=== PATIENT | female | born 1950 | race Caucasian/White ===

== ENCOUNTER 2018-11-20 01:31 | Inpatient (IN) | payer MEDICARE, MEDICAID ==
[2018-11-20 02:20] LABS: Bilirubin Negative (Negative); Blood, Urine Negative (Negative); Clarity CLEAR (Clear); Glucose, Urine (Dipstick) Negative (Negative); Leukocyte Trace (Negative); Nitrite Negative (Negative); Protein, Urine (Dipstick) Negative (Neg-Trace); Urobilinogen 0.2 mg/dL (0.2-1.0); pH, Urine 5.5 (5.0-9.0)
[2018-11-20 02:24] LABS: Specific Gravity, Urine 1.003 (1.002-1.036)
[2018-11-20 02:27] LABS: Bacteria/HPF Rare-Few HPF (None Seen); Hyaline Casts/LPF NONE SEEN LPF (0-3 Hyaline); RBC/HPF None Seen HPF (0-3); Squamous Epithelial 0-3 HPF (0-3); WBC/HPF 0-3 HPF (0-3)
[2018-11-20 03:19] LABS: #Basophils 0.1 thou/uL (0.0-0.2); #Eosinphils 0.3 thou/uL (0.0-0.7); #Lymphocytes 2.2 thou/uL (1.20-3.40); #Monocytes 0.3 thou/uL (0.11-0.59); #Neutrophils 3.4 thou/uL (1.40-6.50); %Basophils 1.3 % (0.0-1.0); %Lymphocytes 35.7 % (21.0-51.0); Hemoglobin 7.8 g/dL (12.0-16.0); Mean Corpuscular HGB CONC 35.2 g/dL (32.0-36.0); Mean Corpuscular Hemoglobin 30.1 pg (27.0-31.0); Mean Corpuscular Volume 85.7 fL (78.0-98.0); Mean Platelet Volume 7.5 fL (7.4-10.4); Platelet Count 207 thou/uL (130-400); RBC Distribution Width 15.8 % (11.5-14.5); Red Blood Cell (RBC) Count 2.58 mill/uL (4.20-5.40); White Blood Cell (WBC) Count 6.3 thou/uL (4.8-10.8)
[2018-11-20 03:29] LABS: ALT (SGPT) Less than 7 U/L (8-55); AST (SGOT) 6 U/L (5-34); Albumin 3.3 g/dL (3.4-4.8); Alkaline Phosphatase 76 U/L (40-150); Anion Gap 12 mmol/L (10-20); BUN (Urea Nitrogen) 10 mg/dL (9.8-20.1); Bilirubin, Total 2.7 mg/dL (0.2-1.2); Calc. Creatinine Clearance 0 mL/min (70-130); Calcium 8.6 mg/dL (7.8-10.44); Carbon Dioxide 24 mmol/L (23-31); Chloride 92 mmol/L (98-107); Estimated GFR-MDRD 64; Globulin 2.6 g/dL (2.4-3.5); Glucose 84 mg/dL (80-115); Potassium 3.7 mmol/L (3.5-5.1); Protein, Total 5.9 g/dL (6.0-8.3); Sodium 124 mmol/L (136-145)
[2018-11-20 04:44] LABS: INR-International Normal Ratio 1.1; PTT 38.1 SEC (22.9-36.1); Prothrombin Time 14.1 SEC (12.0-14.7)
[2018-11-20] MEDS ORDERED: Senokot S 8.6-50 MG TAB PO PRN (07:40)
[2018-11-20] MEDS ORDERED: HYDROcodone/Acetaminophen 5/325 mg Tablet PO PRN (07:40)
[2018-11-20] MEDS ORDERED: Diabetic Tussin 200 MG/10 ML UDCUP PO PRN (07:40)
[2018-11-20] MEDS ORDERED: Cepastat Lozenges 1 LOZ PO PRN (07:40)
[2018-11-20] MEDS ORDERED: Loperamide HCl 2 MG CAP PO PRN (07:40)
[2018-11-20] MEDS ORDERED: hydrALAZINE 20 MG/ML VIAL SLOW IVP PRN (07:40)
[2018-11-20] MEDS ORDERED: Bisacodyl 10 MG SUPP PR PRN (07:40)
[2018-11-20] MEDS ORDERED: Eucerin (Mineral Oil/Petrolatum,White) 30 gm Jar TOP PRN (07:40)
[2018-11-20] MEDS ORDERED: Ondansetron ODT 4 MG TAB PO PRN (07:40)
[2018-11-20] MEDS ORDERED: Artificial Tears 18 DROP/0.9 ML EA EYE PRN (07:40)
[2018-11-20] MEDS ORDERED: Zolpidem Tartrate 5 MG TAB PO PRN (07:40)
[2018-11-20] MEDS ORDERED: Bisacodyl 5 MG TAB PO PRN (07:40)
[2018-11-20] MEDS ORDERED: Loratadine 10 MG TAB PO PRN (07:40)
[2018-11-20] MEDS ORDERED: Sodium Chloride 0.65% Nasal 44 ML BOT EA NARE PRN (07:40)
[2018-11-20] MEDS ORDERED: Acetaminophen 325 MG TAB PO PRN (07:40)
[2018-11-20] MEDS ORDERED: Ondansetron PF 4 MG/2 ML Vial IVP PRN (07:40)
[2018-11-20] MEDS ORDERED: Calcium Carbonate 500 MG ChewTAB PO PRN (07:40)
[2018-11-20] MEDS ORDERED: Enoxaparin Sodium 40 MG/0.4 ML SYRINGE SC SCH (07:45)
--- NOTE | 2018-11-20 08:06 | RAD ---
TWO VIEWS CHEST: Comparison: None. History: Shortness of breath. FINDINGS: Two views of the chest show normal sized cardiomediastinal silhouette. There is no evidence of consol idation, mass, or pleural effusion. The bones are unremarkable. IMPRESSION: No evidence of acute cardiopulmonary disease. POS: CET
--- NOTE | 2018-11-20 08:27 | CT ---
PRELIMINARY REPORT/[facility]/EMERGENTY AFTER-HOURS PROCEDURE CT Head Without Contrast EXAM DATE/TIME: 11/20/2018 5:08 AM CLINICAL HISTORY: 67 years old, female; Signs and symptoms; Dizziness; Patient HX: Lakia presents to ed for feeling "unwe ll. " PT reports feeling dizzy and weak. PT also reports tightness in her head and neck pain for 4 ye ars, denies falling. PT reports she has had low sodium before after reaction to cipro. PT reports smo pham. PT denies chest pain, reports some SOB and difficulty eating. Hx- no HX of chf, heart failure. TECHNIQUE: Axial computed tomography images of the head/brain without contrast. COMPARISON: No relevant prior studies available. FINDINGS: Brain: Normal. No hemorrhage. No significant white matter disease. No edema. Ventricles: Normal. No ventriculomegaly. Bones/joints: Normal. No acute fracture. Sinuses: Normal as visualized. No acute sinusitis. Mastoid air cells: Normal as visualized. No mastoid effusion. Soft tissues: Normal. IMPRESSION: No acute intracranial abnormality. Thank you for allowing us to participate in the care of your patient. Dictated and Authenticated by: Vincenzo Infante MD 11/20/2018 6:47 AM Central Time ([place] & [place]) FINAL REPORT EMERGENCY AFTER HOURS STUDY: CT BRAIN NONCONTRAST: HISTORY: 67-year-old female with dizziness and headache. FINDINGS: There is no midline shift or any other mass effect. There is no evidence of acute intracranial hemor rhage, large cortical infarct, obstructive hydrocephalus, or extraaxial fluid collection. The calvar ium is intact. This report agrees with the preliminary report by [facility]. IMPRESSION: No acute intracranial findings. harjinder POS: ANKIT
--- NOTE | 2018-11-20 08:35 | CT ---
PRELIMINARY REPORT/[facility]/EMERGENTY AFTER-HOURS PROCEDURE CT Chest With Contrast EXAM DATE/TIME: 11/20/2018 5:13 AM CLINICAL HISTORY: 67 years old, female; Signs and symptoms; Shortness of breath; Patient HX: Lakia presents to ed for fee ling "unwell. " PT reports feeling dizzy and weak. PT also reports tightness in her head and neck bernie n for 4 years, denies falling. PT reports she has had low sodium before after reaction to cipro. PT r eports smoking. PT denies chest pain, reports some SOB and difficulty eating. Hx- no HX of chf, heart failure. TECHNIQUE: Axial computed tomography images of the chest with intravenous contrast. COMPARISON: No relevant prior studies available. FINDINGS: Lungs: Mild emphysema. Multifocal peripheral lobular ground glass opacities in the right lung are non specific, most likely scarring, subsegmental atelectasis, or organizing pneumonia. Multifocal infecti ous pneumonia possible but less likely. Pleural space: Normal. No pneumothorax. No pleural effusion. Heart: Normal. No cardiomegaly. No pericardial effusion. Mediastinum: Esophagus is unremarkable. Pulmonary arteries: Study not protocoled to evaluate for pulmonary embolus. No evidence of a large ce ntral PE. Aorta: Atherosclerotic aorta. No aneurysm or acute aortic syndrome. Lymph nodes: Unremarkable. No enlarged lymph nodes. Bones/joints: Unremarkable. No acute fracture. Soft tissues: Unremarkable. Adrenals: Isodense non-mass like thickening of the adrenal glands bilaterally, likely benign. IMPRESSION: Multifocal peripheral lobular ground glass opacities in the right lung are nonspecific, most likely s carring, subsegmental atelectasis, or organizing pneumonia. Multifocal infectious pneumonia possible but less likely. Thank you for allowing us to participate in the care of your patient. Dictated and Authenticated by: Vincenzo Infante MD 11/20/2018 6:50 AM Central Time ([place] & [place]) FINAL REPORT EMERGENCY AFTER HOURS STUDY: CT THORAX WITH CONTRAST: DATE: 11-20-18 TIME: 5:16 A.M. HISTORY: 67-year-old female with dyspnea. COMPARISON: None. TECHNIQUE: IV iodinated contrast media: 100 ml Isovue 370 FINDINGS: Several wedge-shaped small ground glass pulmonary opacities in the anterior segment of the right uppe r lobe abutting the anterior pleural surface. A similar such lesion in the right middle lobe, broadly abutting the major fissure. The rest of the lungs are clear. No pleural effusion or pneumothorax. Tr achea and major bronchi are patent and clear. No cardiomegaly or pericardial effusion. No mediastinal or hilar lymphadenopathy is seen. Mild centrilobular emphysematous changes at bilateral lung apices. Bilateral adrenal hyperplasia. The findings are not typical for subsegmental atelectasis or pulmonary scarring, which is a minor dis agreement with the preliminary report by [facility]. No major disagreement. IMPRESSION: Several focal ground glass opacities in the anterior segment of the right upper lobe and right middle lobe. The differential diagnosis includes organizing pneumonia and multifocal infectious pneumonia, versus pulmonary infarctions. The appearance is not typical for scarring or subsegmental atelectasis. Code QA JN R POS: ANKIT
[2018-11-20] MEDS ORDERED: guaiFENesin ER 600 MG TAB PO SCH ×2 (09:00→10:30)
[2018-11-20] MEDS ORDERED: Saccharomyces boulardii 250 MG CAP PO SCH ×2 (09:00→10:30)
[2018-11-20] MEDS ORDERED: Cefepime 1 GM in Sodium Chloride 0.9% 100 ML IVPB SCH ×2 (09:00→21:00)
[2018-11-20] MEDS ORDERED: cefTRIAXone\\ROCEPHIN 1 GM VIAL ONE (09:46)
[2018-11-20 09:55] LABS: Thyroid Stimulating Hormone 3.3477 uIU/mL (0.35-4.94)
[2018-11-20] MEDS ORDERED: Doxycycline 100 MG CAP PO SCH (10:30)
[2018-11-20] MEDS ORDERED: Azithromycin 500 MG VIAL ONE (10:36)
--- NOTE | 2018-11-20 11:57 | HP ---
PRIMARY CARE PHYSICIAN: [facility]. REASON FOR ADMISSION: Symptomatic hyponatremia, pneumonia. HISTORY OF PRESENT ILLNESS: A 67-year-old female, who has underlying history of hypertension, tobacco abuse disorder, who presented to emergency room with complaint of generalized weakness, cough productive to scant amount of whitish yellow sputum. She denies any pleuritic chest pain. She was feeling weak, fatigue diet, dizzy. She was not feeling good. She was feeling as if exhausted. She denied any orthopnea, PND, or leg swelling. She denies any fever or chills. She was having lately more shortness of breath and more cough. She continued to smoke about half pack per day. She denies any weight loss. She denies any hemoptysis. She denies any UTI symptoms. She denies any constipation, diarrhea, melena, or hematochezia. With this symptoms, she presented in the emergency room and she had a chest x- ray, which was consistent with emphysema. CTA of chest showed findings suspicious for nonspecific infiltration. Her routine blood test also showed hyponatremia and that is why we decided to give this patient in the hospital for further evaluation and treatment. PAST MEDICAL HISTORY: Tobacco abuse disorder and hypertension. PAST SURGICAL HISTORY: Tubal ligation and cataract surgery. PAST PSYCHIATRIC HISTORY: Reviewed and negative. SOCIAL HISTORY: The patient is smoking about half pack per day. She drinks alcohol occasionally. She denies any other illicit drug abuse. FAMILY HISTORY: No family history of coronary artery disease, stroke, or cancer. ALLERGIES: CIPRO, CODEINE, CYMBALTA, IODINE, LEVOTHYROXINE, AND POTASSIUM CHLORIDE. CURRENT HOME MEDICATIONS: 1. Amlodipine 5 mg twice daily. 2. Coreg 6.25 mg twice daily. EMERGENCY ROOM COURSE: The patient is given Rocephin and azithromycin. REVIEW OF SYSTEMS: CONSTITUTIONAL: Negative for weight loss or gain, ability to conduct usual activities. SKIN: Negative for rash, itching. EYES: Negative for double vision, pain. ENT/MOUTH: Negative for nose bleeding, neck stiffness, pain, tenderness. CARDIOVASCULAR: Negative for palpitations, dyspnea on exertion, orthopnea. RESPIRATORY: Negative for shortness of breath, wheezing, cough, hemoptysis, fever or night sweats. GASTROINTESTINAL: Negative for poor appetite, abdominal pain, heartburn, nausea , vomiting, constipation, or diarrhea. GENITOURINARY: Negative for urgency, frequency, dysuria, nocturia. MUSCULOSKELETAL: Negative for pain, swelling. NEUROLOGIC/PSYCHIATRIC: Negative for anxiety, depression. ALLERGY/IMMUNOLOGIC: Negative for skin rash, bleeding tendency. Please see my HPI for pertinent positive and negative. All other review of systems reviewed and negative except as mentioned in HPI. PHYSICAL EXAMINATION: VITAL SIGNS: On arrival, blood pressure 110/56, pulse 67, respiratory rate 16, temperature 97.5, and saturation 100% on room air. Weight 58.9 kg. GENERAL: The patient is currently alert and awake, in no obvious acute distress. HEENT: Head; normocephalic and atraumatic. Eyes; pupils are round and reactive to light. Extraocular muscle intact. ENT, oropharynx within normal limits. Moist mucous membranes. No oral lesion. No pharyngeal erythema. No exudate. NECK: Supple. No JVD. No thyromegaly. No carotid bruit. LUNGS: Coarse breath sounds noted. No wheezing. No rales. CARDIAC: S1, S2 regular. No murmur. No gallop. No rub. ABDOMEN: Soft. Bowel sounds present. Nontender. Nondistended. No organomegaly. No mass. No suprapubic tenderness. BACK: Unremarkable. No CVA tenderness. EXTREMITIES: Upper extremities; passive movement of all joints are normal. Lower extremity, no edema. Good distal pulsation. SKIN: No skin rash. HEMATOLOGICAL SYSTEM: No lymphadenopathy. NEUROLOGIC: Nonfocal examination. ASSESSMENT AND PLAN: 1. Atypical multifocal pneumonia. Differential diagnosis is nonspecific interstitial pneumonia versus organizing pneumonia. The patient has underlying smoking history, so possibility of respiratory bronchiolitis with organizing pneumonia is likely. We will check respiratory viral pathology to rule out any viral etiology. We will start empiric antibiotic therapy with Rocephin and doxycycline. We will continue with DuoNeb q.6 hourly p.r.n. and Mucinex 600 mg twice daily. 2. Florastor 250 mg p.o. daily. 3. Hyponatremia. We will start normal saline at 70 mL/h and we will repeat BMP tomorrow. We will check urine osmolality, plasma osmolality, random cortisol, TSH, and urine electrolytes. 4. Anemia of chronic disease. We will start ferrous sulfate 325 mg p.o. daily, multivitamin 1 tablet p.o. daily. The patient will need age-appropriate colonoscopy after discharge. 5. Tobacco abuse disorder. Smoking cessation counseling given. Healthy lifestyle measure discussed with the patient. 6. Emphysema. The patient will need DuoNeb therapy while in hospital as needed basis. Upon discharge, we will prescribe Ventolin inhaler. Smoking cessation counseling given. 7. Protein-calorie malnutrition, mild. The patient will need nutritional supplement with Ensure t.i.d. 8. Deep venous thrombosis prophylaxis, Lovenox 40 mg subcu daily. Gastrointestinal prophylaxis, Pepcid 20 mg p.o. b.i.d. CODE STATUS: The patient is full code. The patient's daughter is surrogate decision maker. DISPOSITION PLAN: Based on clinical course, we are expecting the patient to stay in hospital more than 2 midnights. Plan of care discussed with the patient in detail. Job ID: [id number] MTDD
[2018-11-20] MEDS ORDERED: Iopamidol 370 76% 100 ML VIAL ONE (12:19)
[2018-11-20] MEDS ORDERED: Famotidine 20 MG TAB ONE (12:45)
[2018-11-20] MEDS ORDERED: Enoxaparin Sodium 40 MG/0.4 ML SYRINGE ONE (12:45)
[2018-11-20] MEDS: Famotidine 20 MG TAB PO SCH ×2 (13:25→20:58)
[2018-11-20] MEDS: Sodium Chloride 0.9% 1,000 ML IV SCH (13:28)
[2018-11-20] MEDS: Doxycycline 100 MG CAP PO SCH (20:58)
[2018-11-20] MEDS: guaiFENesin ER 600 MG TAB PO SCH (20:58)
[2018-11-20 21:51] VITALS: BMI 25.4
[2018-11-21] MEDS: Sodium Chloride 0.9% 1,000 ML IV SCH (01:35)
[2018-11-21 04:44] LABS: Osmolality, Urine 138 mOsm/kg (300-900)
[2018-11-21 04:57] LABS: Sodium, Urine Less than 20 mmol/L (Not Available)
[2018-11-21] MEDS ORDERED: Prevnar 13-Val Conj/PF 0.5 ML SYRINGE IM ONE (09:00)
[2018-11-21] MEDS: cefTRIAXone\\ROCEPHIN 1 GM in Sodium Chloride 0.9% 100 ML IVPB SCH (09:44)
[2018-11-21] MEDS: Doxycycline 100 MG CAP PO SCH ×2 (09:45→20:49)
[2018-11-21] MEDS: Ferrous Sulfate 325 MG TAB PO SCH (09:46)
[2018-11-21] MEDS: Saccharomyces boulardii 250 MG CAP PO SCH (09:46)
[2018-11-21] MEDS: Multivitamin W/ Minerals 1 TAB PO SCH (09:46)
[2018-11-21] MEDS: guaiFENesin ER 600 MG TAB PO SCH ×2 (09:46→20:49)
[2018-11-21] MEDS: Famotidine 20 MG TAB PO SCH ×2 (09:46→20:49)
[2018-11-21 10:15] LABS: Hemoglobin 6.4 g/dL (12.0-16.0); Mean Corpuscular HGB CONC 33.9 g/dL (32.0-36.0); Mean Corpuscular Hemoglobin 29.7 pg (27.0-31.0); Mean Corpuscular Volume 87.7 fL (78.0-98.0); Mean Platelet Volume 7.7 fL (7.4-10.4); Platelet Count 182 thou/uL (130-400); RBC Distribution Width 16.4 % (11.5-14.5); Red Blood Cell (RBC) Count 2.16 mill/uL (4.20-5.40); White Blood Cell (WBC) Count 4.4 thou/uL (4.8-10.8)
[2018-11-21 10:29] LABS: Iron 187 ug/dL (50-170); Iron Binding Capacity, Total 189 mcg/dL (265-497)
[2018-11-21 10:30] LABS: ALT (SGPT) Less than 7 U/L (8-55); AST (SGOT) 7 U/L (5-34); Albumin 2.9 g/dL (3.4-4.8); Alkaline Phosphatase 66 U/L (40-150); Anion Gap 9 mmol/L (10-20); BUN (Urea Nitrogen) 8 mg/dL (9.8-20.1); Bilirubin, Total 2.4 mg/dL (0.2-1.2); Calc. Creatinine Clearance 59 mL/min (70-130); Calcium 8.1 mg/dL (7.8-10.44); Carbon Dioxide 25 mmol/L (23-31); Chloride 98 mmol/L (98-107); Estimated GFR-MDRD 64; Globulin 2.2 g/dL (2.4-3.5); Glucose 109 mg/dL (80-115); Potassium 3.5 mmol/L (3.5-5.1); Protein, Total 5.1 g/dL (6.0-8.3); Sodium 128 mmol/L (136-145)
[2018-11-21 11:02] LABS: Band 2 % (5-11); Bite Cells SLIGHT = 2-5 cells (100X) (0-1/hpf); Eosinophils 5 % (0-10); Lymphocytes 46 % (21-51); MDiff Complete? YES; Monocytes 3 % (0-10); Neutrophil 43 % (42-75); Platelet Morphology Comment Appears Adequate; Polychromasia SLIGHT = 2-3 cells (100X) (0-2/hpf); Reactive Lymphocytes 1 % (0-10)
--- NOTE | 2018-11-21 11:04 | PDOC.PN ---
- Subjective Encounter Start Date: 11/21/18 Encounter Start Time: 09:30 Patient seen and examined. No new complaints. No overnight events - Objective Resuscitation Status - Order Detail: 11/20/18 07:39 Resuscitation Status Routine Resuscitation Status: FULL: Full Resuscitation MAR Reviewed: Yes Vital Signs & Weight: Vital Signs (12 hours) Temp Pulse Resp BP Pulse Ox 11/21/18 07:40 97.8 F 64 18 109/69 99 11/21/18 04:00 97.8 F 73 18 96/54 L 96 11/21/18 00:00 98 F 78 18 100/56 L 98 Weight Weight 130 lb 1.164 oz I&O: 11/20/18 11/21/18 11/22/18 06:59 06:59 06:59 Intake Total 1200 Balance 1200 Result Diagrams: 11/21/18 09:35 11/21/18 09:35 Phys Exam - Physical Examination Constitutional: NAD HEENT: PERRLA, moist MMs, sclera anicteric Neck: no JVD, supple Respiratory: no wheezing, no rales, no rhonchi Cardiovascular: RRR, no significant murmur, no rub Gastrointestinal: soft, non-tender, no distention, positive bowel sounds Musculoskeletal: no edema, pulses present Neurological: non-focal, normal sensation, moves all 4 limbs Lymphatic: no nodes Psychiatric: normal affect, A&O x 3 Skin: no rash, normal turgor Dx/Plan (1) Atypical pneumonia Code(s): J18.9 - PNEUMONIA, UNSPECIFIED ORGANISM Status: Acute (2) Hyponatremia Code(s): E87.1 - HYPO-OSMOLALITY AND HYPONATREMIA Status: Acute (3) Anemia, normocytic normochromic Code(s): D64.9 - ANEMIA, UNSPECIFIED Status: Chronic (4) Emphysema of lung Code(s): J43.9 - EMPHYSEMA, UNSPECIFIED Status: Chronic (5) Hypertension Code(s): I10 - ESSENTIAL (PRIMARY) HYPERTENSION Status: Chronic (6) Protein-calorie malnutrition, mild Code(s): E44.1 - MILD PROTEIN-CALORIE MALNUTRITION Status: Chronic (7) Tobacco abuse Code(s): Z72.0 - TOBACCO USE Status: Chronic - Plan cont current plan of care, plan discussed w/ family, continue antibiotics, respiratory therapy * continue rocephin and doxy * transfuse 1 unit PRBC * continue IVF * nutritional support * medication reviewed as below * symptomatic treatment. * anemia work up Review of Systems - Review of Systems ENT: negative: Ear Pain, Ear Discharge, Nose Pain, Nose Discharge, Nose Congestion, Mouth Pain, Mouth Swelling, Throat Pain, Throat Swelling, Other Respiratory: negative: Cough, Dry, Shortness of Breath, Hemoptysis, SOB with Excertion, Pleuritic Pain, Sputum, Wheezing Cardiovascular: negative: chest pain, palpitations, orthopnea, paroxysmal nocturnal dyspnea, edema, light headedness, other Gastrointestinal: negative: Nausea, Vomiting, Abdominal Pain, Diarrhea, Constipation, Melena, Hematochezia, Other Genitourinary: negative: Dysuria, Frequency, Incontinence, Hematuria, Retention , Other Musculoskeletal: negative: Neck Pain, Shoulder Pain, Arm Pain, Back Pain, Hand Pain, Leg Pain, Foot Pain, Other Skin: negative: Rash, Lesions, Neeraj, Bruising, Other - Medications/Allergies Allergies/Adverse Reactions: Allergies Allergy/AdvReac Type Severity Reaction Status Date / Time ciprofloxacin [From Cipro] Allergy Verified 11/20/18 08:13 codeine Allergy Verified 11/20/18 08:13 duloxetine [From Cymbalta] Allergy Verified 11/20/18 08:13 iodine Allergy Verified 11/20/18 08:13 levothyroxine Allergy Verified 11/20/18 08:13 potassium chloride Allergy Verified 11/20/18 08:13 Medications: Current Medications Acetaminophen (Tylenol) 650 mg PO Q4H PRN PRN Reason: Headache/Fever/Mild Pain (1-3) Hydrocodone Bitart/Acetaminophen ([place] 5/325) 1 tab PO Q4H PRN PRN Reason: Moderate Pain (4-6) Albuterol/Ipratropium (Duoneb) 3 ml NEB Q6H PRN PRN Reason: Wheezing or Cough Artificial Tears (Tears Naturale) 2 drop EA EYE PRN PRN PRN Reason: Dry Eyes Bisacodyl (Dulcolax) 10 mg PO DAILYPRN PRN PRN Reason: Constipation Bisacodyl (Dulcolax) 10 mg [place] DAILYPRN PRN PRN Reason: Constipation Calcium Carbonate (Tums) 1,000 mg PO Q4H PRN PRN Reason: Heartburn or Indigestion Doxycycline Hyclate (Vibramycin) 100 mg PO BID [facility] Last Admin: 11/21/18 09:45 Dose: 100 mg Famotidine (Pepcid) 20 mg PO BID [facility] Last Admin: 11/21/18 09:46 Dose: 20 mg Ferrous Sulfate (Feosol) 325 mg PO QAM[facility] Last Admin: 11/21/18 09:46 Dose: 325 mg Guaifenesin (Robitussin Sf) 200 mg PO Q4H PRN PRN Reason: Cough Guaifenesin (Mucinex) 600 mg PO Q12HR [facility] Last Admin: 11/21/18 09:46 Dose: 600 mg Hydralazine HCl (Apresoline) 10 mg SLOW IVP Q4H PRN PRN Reason: SBP > 180 and HR < 70 Ceftriaxone Sodium 1 gm/ (Sodium Chloride) 100 mls @ 200 mls/hr IVPB 0800 [facility] Last Admin: 11/21/18 09:44 Dose: 100 mls Sodium Chloride (Normal Saline 0.9%) 1,000 mls @ 70 mls/hr IV .[id number] [facility] Last Admin: 11/21/18 01:35 Dose: Not Given Iron/Minerals/Multivitamins (Theragran M) 1 tab PO DAILY [facility] Last Admin: 11/21/18 09:46 Dose: 1 tab Loperamide HCl (Imodium) 2 mg PO PRN PRN PRN Reason: Diarrhea/Loose Stools Loratadine (Claritin) 10 mg PO DAILYPRN PRN PRN Reason: Sinus Symptoms Mineral Oil/White Petrolatum (Eucerin Cream) 0 gm TOP BIDPRN PRN PRN Reason: Dry Skin Ondansetron HCl (Zofran Odt) 4 mg PO Q6H PRN PRN Reason: Nausea/Vomiting Ondansetron HCl (Zofran) 4 mg IVP Q6H PRN PRN Reason: Nausea/Vomiting Saccharomyces Boulardii (Florastor) 250 mg PO DAILY [facility] Last Admin: 11/21/18 09:46 Dose: 250 mg Senna/Docusate Sodium (Senokot S) 2 tab PO BID PRN PRN Reason: Constipation Sodium Chloride ([place] Nasal [place] 0.65%) 0 ml EA NARE QIDPRN PRN PRN Reason: Nasal Congestion Throat Lozenges (Cepastat Lozenges) 1 ulices PO Q2H PRN PRN Reason: Sore Throat Zolpidem Tartrate (Ambien) 5 mg PO HSPRN PRN PRN Reason: Insomnia
[2018-11-22] MEDS: Sodium Chloride 0.9% 1,000 ML IV SCH ×3 (01:12→06:41)
[2018-11-22 07:42] LABS: Mean Corpuscular HGB CONC 32.4 g/dL (32.0-36.0); Mean Corpuscular Hemoglobin 29.3 pg (27.0-31.0); Mean Corpuscular Volume 90.3 fL (78.0-98.0); Mean Platelet Volume 7.5 fL (7.4-10.4); Platelet Count 202 thou/uL (130-400); RBC Distribution Width 15.9 % (11.5-14.5); Red Blood Cell (RBC) Count 2.73 mill/uL (4.20-5.40); White Blood Cell (WBC) Count 4.5 thou/uL (4.8-10.8)
[2018-11-22 07:55] LABS: Anion Gap 10 mmol/L (10-20); BUN (Urea Nitrogen) 7 mg/dL (9.8-20.1); Calc. Creatinine Clearance 65 mL/min (70-130); Calcium 8.2 mg/dL (7.8-10.44); Carbon Dioxide 22 mmol/L (23-31); Chloride 101 mmol/L (98-107); Estimated GFR-MDRD 74; Glucose 85 mg/dL (80-115); Potassium 4.3 mmol/L (3.5-5.1); Sodium 129 mmol/L (136-145)
[2018-11-22] MEDS: Ferrous Sulfate 325 MG TAB PO SCH (08:25)
[2018-11-22] MEDS: cefTRIAXone\\ROCEPHIN 1 GM in Sodium Chloride 0.9% 100 ML IVPB SCH (08:25)
[2018-11-22] MEDS: Famotidine 20 MG TAB PO SCH ×2 (08:25→20:40)
[2018-11-22] MEDS: guaiFENesin ER 600 MG TAB PO SCH ×2 (08:25→20:40)
[2018-11-22] MEDS: Saccharomyces boulardii 250 MG CAP PO SCH (08:25)
[2018-11-22] MEDS: Multivitamin W/ Minerals 1 TAB PO SCH (08:26)
[2018-11-22] MEDS: Doxycycline 100 MG CAP PO SCH ×2 (09:40→20:40)
[2018-11-22 09:43] LABS: Band 1 % (5-11); Hypochromia SLIGHT = 6-15 cells (100X) (0-5/hpf); Lymphocytes 30 % (21-51); MDiff Complete? YES; Metamyelocyte 2 % (0-0); Monocytes 2 % (0-10); Neutrophil 55 % (42-75); Platelet Morphology Comment Appears Adequate; Polychromasia SLIGHT = 2-3 cells (100X) (0-2/hpf); Reactive Lymphocytes 10 % (0-10)
--- NOTE | 2018-11-22 09:54 | PDOC.PN ---
- Subjective Encounter Start Date: 11/22/18 Encounter Start Time: 09:10 c/o neck pain, feels otherwise normal, her neck pain is chronic but getting worse - Objective Resuscitation Status - Order Detail: 11/20/18 07:39 Resuscitation Status Routine Resuscitation Status: FULL: Full Resuscitation MAR Reviewed: Yes Vital Signs & Weight: Vital Signs (12 hours) Temp Pulse Resp BP Pulse Ox 11/22/18 07:59 98.0 F 67 16 111/65 99 11/22/18 04:00 98.1 F 68 18 104/63 96 11/22/18 00:00 98.1 F 66 18 110/66 98 Weight Weight 130 lb 1.164 oz Most Recent Monitor Data Heart Rate from ECG 67 NIBP 116/62 Respiration from ECG 18 I&O: 11/21/18 11/22/18 11/23/18 06:59 06:59 06:59 Intake Total 7869 463 2318 Balance 9307 592 6624 Result Diagrams: 11/22/18 07:25 11/22/18 07:25 Phys Exam - Physical Examination Constitutional: NAD HEENT: PERRLA, moist MMs, sclera anicteric Neck: no JVD, supple Respiratory: no wheezing, no rales, no rhonchi Cardiovascular: RRR, no significant murmur, no rub Gastrointestinal: soft, non-tender, no distention, positive bowel sounds Musculoskeletal: no edema, pulses present Neurological: non-focal, normal sensation Lymphatic: no nodes Psychiatric: normal affect, A&O x 3 Skin: no rash, normal turgor Dx/Plan (1) Atypical pneumonia Code(s): J18.9 - PNEUMONIA, UNSPECIFIED ORGANISM Status: Acute (2) Hyponatremia Code(s): E87.1 - HYPO-OSMOLALITY AND HYPONATREMIA Status: Acute (3) Anemia, normocytic normochromic Code(s): D64.9 - ANEMIA, UNSPECIFIED Status: Chronic (4) Emphysema of lung Code(s): J43.9 - EMPHYSEMA, UNSPECIFIED Status: Chronic (5) Hypertension Code(s): I10 - ESSENTIAL (PRIMARY) HYPERTENSION Status: Chronic (6) Protein-calorie malnutrition, mild Code(s): E44.1 - MILD PROTEIN-CALORIE MALNUTRITION Status: Chronic - Plan cont current plan of care, plan discussed w/ family, continue antibiotics * DC IVF * get CT cervical spine to rule out cervical stenosis * continue one more day IV antibiotics * medication reviewed as below * symptomatic treatment. Review of Systems - Review of Systems ENT: negative: Ear Pain, Ear Discharge, Nose Pain, Nose Discharge, Nose Congestion, Mouth Pain, Mouth Swelling, Throat Pain, Throat Swelling, Other Respiratory: negative: Cough, Dry, Shortness of Breath, Hemoptysis, SOB with Excertion, Pleuritic Pain, Sputum, Wheezing Cardiovascular: negative: chest pain, palpitations, orthopnea, paroxysmal nocturnal dyspnea, edema, light headedness, other Gastrointestinal: negative: Nausea, Vomiting, Abdominal Pain, Diarrhea, Constipation, Melena, Hematochezia, Other Genitourinary: negative: Dysuria, Frequency, Incontinence, Hematuria, Retention , Other Musculoskeletal: Neck Pain. negative: Shoulder Pain, Arm Pain, Back Pain, Hand Pain, Leg Pain, Foot Pain, Other Skin: negative: Rash, Lesions, Neeraj, Bruising, Other - Medications/Allergies Allergies/Adverse Reactions: Allergies Allergy/AdvReac Type Severity Reaction Status Date / Time ciprofloxacin [From Cipro] Allergy Verified 11/20/18 08:13 codeine Allergy Verified 11/20/18 08:13 duloxetine [From Cymbalta] Allergy Verified 11/20/18 08:13 iodine Allergy Verified 11/20/18 08:13 levothyroxine Allergy Verified 11/20/18 08:13 potassium chloride Allergy Verified 11/20/18 08:13 Medications: Current Medications Acetaminophen (Tylenol) 650 mg PO Q4H PRN PRN Reason: Headache/Fever/Mild Pain (1-3) Albuterol/Ipratropium (Duoneb) 3 ml NEB Q6H PRN PRN Reason: Wheezing or Cough Artificial Tears (Tears Naturale) 2 drop EA EYE PRN PRN PRN Reason: Dry Eyes Bisacodyl (Dulcolax) 10 mg PO DAILYPRN PRN PRN Reason: Constipation Bisacodyl (Dulcolax) 10 mg [place] DAILYPRN PRN PRN Reason: Constipation Calcium Carbonate (Tums) 1,000 mg PO Q4H PRN PRN Reason: Heartburn or Indigestion Doxycycline Hyclate (Vibramycin) 100 mg PO BID [facility] Last Admin: 11/22/18 09:40 Dose: 100 mg Famotidine (Pepcid) 20 mg PO BID [facility] Last Admin: 11/22/18 08:25 Dose: 20 mg Ferrous Sulfate (Feosol) 325 mg PO QAM-[facility] Last Admin: 11/22/18 08:25 Dose: 325 mg Guaifenesin (Robitussin Sf) 200 mg PO Q4H PRN PRN Reason: Cough Guaifenesin (Mucinex) 600 mg PO Q12HR [facility] Last Admin: 11/22/18 08:25 Dose: 600 mg Hydralazine HCl (Apresoline) 10 mg SLOW IVP Q4H PRN PRN Reason: SBP > 180 and HR < 70 Ceftriaxone Sodium 1 gm/ (Sodium Chloride) 100 mls @ 200 mls/hr IVPB 0800 [facility] Last Admin: 11/22/18 08:25 Dose: 100 mls Iron/Minerals/Multivitamins (Theragran M) 1 tab PO DAILY [facility] Last Admin: 11/22/18 08:26 Dose: 1 tab Loperamide HCl (Imodium) 2 mg PO PRN PRN PRN Reason: Diarrhea/Loose Stools Loratadine (Claritin) 10 mg PO DAILYPRN PRN PRN Reason: Sinus Symptoms Mineral Oil/White Petrolatum (Eucerin Cream) 0 gm TOP BIDPRN PRN PRN Reason: Dry Skin Ondansetron HCl (Zofran Odt) 4 mg PO Q6H PRN PRN Reason: Nausea/Vomiting Ondansetron HCl (Zofran) 4 mg IVP Q6H PRN PRN Reason: Nausea/Vomiting Saccharomyces Boulardii (Florastor) 250 mg PO DAILY [facility] Last Admin: 11/22/18 08:25 Dose: 250 mg Senna/Docusate Sodium (Senokot S) 2 tab PO BID PRN PRN Reason: Constipation Sodium Chloride ([place] Nasal [place] 0.65%) 0 ml EA NARE QIDPRN PRN PRN Reason: Nasal Congestion Throat Lozenges (Cepastat Lozenges) 1 ulices PO Q2H PRN PRN Reason: Sore Throat Zolpidem Tartrate (Ambien) 5 mg PO HSPRN PRN PRN Reason: Insomnia
--- NOTE | 2018-11-22 13:01 | CT ---
CT CERVICAL SPINE WITHOUT CONTRAST: HISTORY: Neck pain. FINDINGS: The occipital condyles are intact. The odontoid process is intact. The visualized portions of the m andible are intact. The spinous processes are intact. No acute fracture or malalignment of the cervical spine. Some low-grade emphysematous changes of the lung apices. The thyroid is unremarkable. Paraspinal so ft tissues are unremarkable. Levels are as follows: C2-3: Mild uncinate process hypertrophy. No significant facet arthropathy. No neural foraminal or central canal narrowing. C3-4: Mild degenerative disk space height loss. Central and bilateral pericentral posterior disk pr otrusion. Mild uncinate process hypertrophy. Mild bilateral neural foraminal narrowing. The spinal canal at this level measures approximately 6 mm. C4-5: Mild degenerative disk space narrowing. There is a broad-based posterior disk protrusion with mild uncinate process hypertrophy worse on the right. There is also subforaminal right posterior di sk-osteophyte complex. There is moderate to severe right and moderate left-sided neural foraminal na rrowing. There is mild narrowing of the spinal canal measuring approximately 6 mm. C5-6: There is a broad-based posterior disk-osteophyte complex, largest in the right paracentral sub foraminal zones. Moderate to severe right and moderate left-sided neural foraminal narrowing. There is also narrowing of the spinal canal to approximately 7 mm. C6-7: Broad-based posterior disk protrusion. Mild uncinate process hypertrophy. Moderate left and mild to moderate right-sided neural foraminal narrowing. The spinal canal measures approximately 7 m m. IMPRESSION: Moderate spondylosis as described above. There is multifocal neural foraminal and spinal canal narro wing due to a combination of disk-osteophyte complexes and uncinate process hypertrophy. POS: [facility]
[2018-11-23 08:02] VITALS: BP 123/68; TEMP 98.1
[2018-11-23 08:10] LABS: Anion Gap 11 mmol/L (10-20); BUN (Urea Nitrogen) 10 mg/dL (9.8-20.1); Calc. Creatinine Clearance 70 mL/min (70-130); Calcium 8.4 mg/dL (7.8-10.44); Carbon Dioxide 24 mmol/L (23-31); Chloride 101 mmol/L (98-107); Estimated GFR-MDRD 80; Glucose 82 mg/dL (80-115); Potassium 4.1 mmol/L (3.5-5.1); Sodium 132 mmol/L (136-145)
[2018-11-23] MEDS: Famotidine 20 MG TAB PO SCH (08:21)
[2018-11-23] MEDS: Ferrous Sulfate 325 MG TAB PO SCH (08:21)
[2018-11-23] MEDS: Multivitamin W/ Minerals 1 TAB PO SCH (08:21)
[2018-11-23] MEDS: Doxycycline 100 MG CAP PO SCH (08:21)
[2018-11-23] MEDS: Saccharomyces boulardii 250 MG CAP PO SCH (08:21)
[2018-11-23] MEDS: cefTRIAXone\\ROCEPHIN 1 GM in Sodium Chloride 0.9% 100 ML IVPB SCH (08:23)
[2018-11-23] MEDS: guaiFENesin ER 600 MG TAB PO SCH (08:27)
[2018-11-23] MEDS ORDERED: Prevnar 13-Val Conj/PF 0.5 ML SYRINGE IM ONE (09:15)
--- NOTE | 2018-11-23 10:44 | DIS ---
DATE OF ADMISSION: 11/20/2018 DATE OF DISCHARGE: 11/23/2018 PRIMARY CARE PHYSICIAN: [facility] Call admission. DISCHARGE DISPOSITION: Home. PRIMARY DISCHARGE DIAGNOSES: 1. Atypical pneumonia. 2. Hyponatremia due to syndrome of inappropriate antidiuretic hormone. SECONDARY DISCHARGE DIAGNOSES: Tobacco abuse disorder, mild protein calorie malnutrition, hypertension, emphysema of lung, cervical spondylosis, and normocytic normochromic anemia. PRIMARY PROCEDURE/OPERATION: None. RADIOLOGICAL INVESTIGATION: Chest x-ray showed atypical pneumonia with emphysematous changes. Chest CT scan consistent with atypical pneumonia. CT brain negative for an acute intracranial process. CT cervical spine showed cervical spondylosis. SIGNIFICANT LABORATORY DATA: WBC 4.5, hemoglobin 8.0, platelet 202. INR 1.1. Sodium 132, potassium 4.1, BUN 10, creatinine 0.73, calcium 8.4, ferritin 158, iron 187, TIBC 189%, and percent iron saturation 99. AST 7, ALT 7, alkaline phosphatase 66, albumin 2.9. TSH and cortisol normal. Urinalysis unremarkable. Blood culture negative. Respiratory virus panel negative. Stool for occult blood negative. DISCHARGE MEDICATIONS: 1. Amlodipine 5 mg p.o. daily. 2. Ventolin inhaler two puffs q.6 hourly p.r.n. 3. Doxycycline 100 mg b.i.d. for five days. 4. Ferrous sulfate 325 mg daily. 5. Multivitamin one tablet daily. 6. Florastor 250 mg p.o. daily for five days. 7. Coreg 6.25 mg p.o. b.i.d. CONTRAINDICATION: None. CODE STATUS: Full code. INPATIENT TOY PARTS FORMER SUPERVISOR: None. ALLERGIES: CIPRO, CODEINE, CYMBALTA, IODINE, AND LEVOTHYROXINE. DISCHARGE PLAN: Posthospital, the patient will follow up with primary care physician in one week. The patient is instructed to follow up with Dr. García as a neurosurgeon in the clinic for followup on cervical spondylolysis. HOSPITAL COURSE: A 68-year-old female, who was admitted by me on 11/20/2018. Please see my HPI for further details. On admission, the patient was having generalized weakness, fatigue. Her sodium was low. Her chest x-ray is showing emphysematous changes, but CT chest confirmed multifocal infiltration. She was treated with Rocephin and doxycycline. She was also given IV fluid and her sodium was improved. The patient's hemoglobin dropped to 6.4 and required 1 unit of blood transfusion. Her stool for guaiac was negative. We advised her to get outpatient followup with dye tub operator for routine age-appropriate cancer screening. The patient is also instructed to make appointment with primary care physician in one week. The patient was having chronic neck pain and that is why we did CT cervical spine and found with cervical spondylosis, which showed degenerative spine disease in cervical spine and that is why we advised her to follow up with neurosurgeon as an outpatient basis. While in hospital, the patient was given education about diet as well as fluid restriction as well as smoking cessation counseling was given. The patient is overall doing very well. The patient is ready for discharge today. The patient is seen and examined at bedside today. Plan of care discussed with the patient and family member. REVIEW OF SYSTEMS: Reviewed with her and negative. PHYSICAL EXAMINATION: VITAL SIGNS: Currently temperature 98.1, pulse 69, respiratory rate 18, saturation 96%, blood pressure 123/68, and weight 130 pounds. GENERAL: The patient is currently alert, awake, no obvious acute distress. HEENT: Head; normocephalic and atraumatic. Eyes; pupils are round and reactive to light. Extraocular muscle intact. ENT, oropharynx within normal limits. Moist mucous membranes. No oral lesion. No pharyngeal erythema. No exudate. NECK: Supple. No JVD. No thyromegaly. No carotid bruit. No jugular venous distention. LUNGS: Clear to auscultation without any rhonchi or rales. CARDIAC: S1 and S2, regular without any murmur. ABDOMEN: Soft and benign without any tenderness. EXTREMITIES: No edema. NEUROLOGIC: Nonfocal examination. The patient is medically stable for discharge today. Job ID: [id number]
== END 2018-11-23 15:15 | disposition home or self-care (01) | DRG 194 ==
LOC: ERS 01:31 → ERHOLD 04:51 → T4-B 18:30
PROVIDERS: ADMIT Internal Medicine; ATTEND Internal Medicine
DX: J18.9 Pneumonia, unspecified organism (principal); E44.1 Mild protein-calorie malnutrition; E22.2 Syndrome of inappropriate secretion of antidiuretic hormone; I10 Essential (primary) hypertension; J43.9 Emphysema, unspecified; D64.9 Anemia, unspecified; M47.812 Spondylosis without myelopathy or radiculopathy, cervical region; F17.210 Nicotine dependence, cigarettes, uncomplicated; Z98.49 Cataract extraction status, unspecified eye; Z88.1 Allergy status to other antibiotic agents; Z88.5 Allergy status to narcotic agent; Z98.51 Tubal ligation status; Z88.8 Allergy status to other drugs, medicaments and biological substances; Z91.041 Radiographic dye allergy status; Z71.6 Tobacco abuse counseling; Z68.25 Body mass index [BMI] 25.0-25.9, adult
CPT/HCPCS: 36415; 36430; 70450; 71046; 71260; 72125; 80048; 80053; 81003; 81015; 82274; 82533; 82570; 82728; 83540; 83550; 83880; 83930; 83935; 84300; 84443; 84484; 85025; 85610; 85730; 86850; 86900; 86901; 87040; 87633; 90471; 90662; 90670; 93005; 96365; 96367; G0008; G0009; J0456; J0696; J1650; J7050; P9016

== ENCOUNTER 2019-01-07 12:41 | Outpatient (CLI) | payer MEDICARE, MEDICAID ==
--- NOTE | 2019-01-07 16:36 | MRI ---
MRI OF THE CERVICAL SPINE WITHOUT CONTRAST: INDICATION: History of cervical stenosis. TECHNIQUE: Multiplanar, multisequence MRI images were obtained of the cervical spine without IV contrast. FINDINGS: Visualized prevertebral and paravertebral soft tissues appear within normal limits. Motion artifact slightly limits image detail. Craniocervical junction appears within normal limits. At C2-C3, there is mild facet joint degenerative change and a broad-based bulge. There is a small ce ntral disk protrusion. There is no appreciable central canal or neural foraminal narrowing. At C3-4, there is a broad-based bulge with facet joint degenerative change inducing mild ventral effa cement of the subarachnoid space without definite cord compression. At C4-5, there is an asymmetric to the right disk-osteophyte complex with facet joint degenerative ch pedro inducing severe right and mild left neural foraminal narrowing. There is moderate central canal narrowing with mild ventral effacement of the spinal cord. At C5-6, there is a disk-osteophyte complex asymmetric to the right. There is moderate to severe lef t and severe right neural foraminal narrowing. There is moderate central canal narrowing with modera te ventral effacement of the spinal cord. At C6-7, there is a broad-based bulge causing mild ventral effacement of the spinal cord with mild le ft neural foraminal narrowing. At C7-T1, there is no appreciable central canal or neural foraminal narrowing. IMPRESSION: 1. Multilevel central canal narrowing from C3-4 through C6-7. 2. Prominent neural foraminal narrowing as detailed above. POS: [facility]
== END 2019-01-07 12:42 | disposition home or self-care (01) ==
LOC: BICMRI 12:41
PROVIDERS: ATTEND Specialist
DX: M48.02 Spinal stenosis, cervical region (principal)
CPT/HCPCS: 72141

== ENCOUNTER 2019-02-12 12:46 | Outpatient (CLI) | payer MEDICARE, MEDICAID ==
--- NOTE | 2019-02-12 13:20 | RAD ---
FCervical spine 3 views: 02/12/2019 COMPARISON: None available HISTORY: Flexion and extension imaging requested, pain in the back of the neck and at the base of the skull FINDINGS: Lateral neutral, flexion, and extension radiographs provided. Mild degenerative change noted at the atlantoaxial interspace. There is mild anterior osteophyte formation at C3-4, C4-5, C5-6, and C6-7. Mild posterior osteophyte formation at C4-5 and C5-6. On the neutral lateral imaging there is no significant anterolisthesis or retrolisthesis. Extension i maging and flexion imaging demonstrates no significant anterolisthesis or retrolisthesis. No preverte bral soft tissue swelling. IMPRESSION: No acute findings. Degenerative changes as detailed above.
== END 2019-02-12 12:47 | disposition home or self-care (01) ==
LOC: TBSIIMAG 12:46
PROVIDERS: ATTEND Neurological Surgery
DX: M47.22 Other spondylosis with radiculopathy, cervical region (principal)
CPT/HCPCS: 72040; 72100

== ENCOUNTER 2019-04-04 05:48 | Inpatient (IN) | payer MEDICARE, MEDICAID ==
[2019-04-03 15:19] VITALS: BMI 25.1
[2019-04-04] MEDS ORDERED: Sodium Chloride 0.9% 10 ML ONE (06:17)
[2019-04-04] MEDS ORDERED: Thrombin 5000 UNITS/5 ML VIAL ONE (06:17)
[2019-04-04 06:42] LABS: Hemoglobin 13.4 g/dL (12.0-16.0); Mean Corpuscular HGB CONC 33.6 g/dL (32.0-36.0); Mean Corpuscular Hemoglobin 29.4 pg (27.0-31.0); Mean Corpuscular Volume 87.3 fL (78.0-98.0); Mean Platelet Volume 7.7 fL (7.4-10.4); Platelet Count 175 thou/uL (130-400); RBC Distribution Width 12.9 % (11.5-14.5); Red Blood Cell (RBC) Count 4.56 mill/uL (4.20-5.40); White Blood Cell (WBC) Count 6.9 thou/uL (4.8-10.8)
[2019-04-04] MEDS ORDERED: Fentanyl 100 MCG/2 ML VIAL ONE ×2 (07:07→10:53)
[2019-04-04] MEDS ORDERED: Midazolam HCl 2 mg/2 ml Vial ONE (07:08)
--- NOTE | 2019-04-04 07:44 | HP ---
HISTORY OF PRESENT ILLNESS: This is a 68-year-old female who reports to our office following an emergency department visit for neck pain. She describes that she is falling frequently. She has received MRI and x-rays to review and is ready to discuss surgery. She has noted some hand numbness, but not significant loss of finger coordination. She states her legs have good strength and there are no radicular pain from the . REVIEW OF SYSTEMS: A 10-point review of systems has been completed and is negative other than stated in the above HPI. PAST MEDICAL HISTORY: Chronic sinusitis, stomach ulcers, anxiety, low thyroid function, high elevated cholesterol, high blood pressure, anemia and allergies. PAST SURGICAL HISTORY: Tubal ligation in 1989, cataract in 2001 and grafts. FAMILY HISTORY: Father is of high blood pressure, asthma, and heart disease. Children are alive. SOCIAL HISTORY: The patient is a former smoker. Denies alcohol or drug use. MEDICATIONS: Amlodipine and carvedilol. ALLERGIES: CODEINE, VICODIN, LEVOTHYROXINE, AND CIPROFLOXACIN. PHYSICAL EXAMINATION: CONSTITUTIONAL: Well appearing, well nourished, alert. RESPIRATIONS: Normal work of breathing on room air. NEURO: Gait and station normal. is very unbalanced. Motor exam, mild flexor extension weakness on both sides. Sensory exam nondermatomal, slight loss of sensation again and mild Tinel's, right greater than left wrist. IMAGING DATA: MRI, stenosis with deformations at C3-4, C4-5 and C5-6 stenosis with pressure, presumed CSF C6-7, foraminal disease C6-7. Flexion-extension, C4-5, C5-6 . ASSESSMENT AND PLAN: Cervical stenosis with myelopathy. Dr. García offered ACDF. The patient states she understands the risks and is willing to proceed with surgery. Job ID: [id number]
[2019-04-04 07:59] LABS: Prothrombin Time 13.3 SEC (12.0-14.7)
[2019-04-04] MEDS ORDERED: PHENYLEPHRINE-NS 100 MCG/ML 10 ML SYRINGE ONE (08:26)
[2019-04-04] MEDS ORDERED: Phenylephrine HCL 10 MG/ML VIAL ONE (08:28)
[2019-04-04] MEDS ORDERED: Ondansetron HCl/PF 4 MG/2 ML Vial IVP PRN (10:19)
[2019-04-04] MEDS ORDERED: Promethazine HCl 25 MG/ML VIAL IM PRN ×2 (10:19→10:32)
[2019-04-04] MEDS ORDERED: Promethazine HCl 25 MG/ML VIAL SLOW IVP PRN (10:19)
[2019-04-04] MEDS ORDERED: Ondansetron PF 4 MG/2 ML Vial IVP PRN (10:32)
[2019-04-04] MEDS ORDERED: Milk Of Magnesia 30 ML UDCUP PO PRN (10:32)
[2019-04-04] MEDS ORDERED: Mag-Al 1200 mg/1200 mg/30 ML UDCUP PO PRN (10:32)
[2019-04-04] MEDS ORDERED: diphenhydrAMINE 25 MG CAP PO PRN (10:32)
[2019-04-04] MEDS ORDERED: Promethazine 25 MG TAB PO PRN (10:32)
[2019-04-04] MEDS ORDERED: diphenhydrAMINE 50 MG/ML VIAL IVP PRN (10:32)
[2019-04-04] MEDS ORDERED: tiZANidine HCl 4 MG TAB PO PRN (10:32)
[2019-04-04] MEDS ORDERED: Morphine 4 MG/ML VIAL SLOW IVP PRN (10:32)
[2019-04-04] MEDS ORDERED: Morphine 2 MG/ML SYRINGE SLOW IVP PRN (10:32)
[2019-04-04] MEDS ORDERED: Bisacodyl 10 MG SUPP PR PRN (10:32)
[2019-04-04] MEDS ORDERED: Acetaminophen 325 MG TAB PO PRN (10:32)
[2019-04-04] MEDS ORDERED: traMADol HCl 50 MG TAB PO PRN ×2 (10:32)
[2019-04-04] MEDS ORDERED: Promethazine HCl 25 MG/ML VIAL ONE (12:15)
--- NOTE | 2019-04-04 13:47 | OP ---
DATE OF PROCEDURE: 04/04/2019 FRINGE WEAVER: Cielo Crawford PA-C PREOPERATIVE INDICATION: Prevent neurological deterioration. 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 PROCEDURES PERFORMED: Anterior cervical diskectomy; intervertebral arthrodesis; placement of intervertebral biomechanical device and anterior cervical plating at C3-C4, C4-C5 and C5-C6; local morselized autograft and morselized allograft; operative microscope. PREOPERATIVE MEDICATION: Ancef 2 g IV. DRAIN NUMBER: Zero. DRAIN TYPE: None. DESCRIPTION OF PROCEDURE: The patient was brought to the operating room. General endotracheal anesthesia was induced. The patient was positioned with the head supported by a gel-filled doughnut shaped headrest and a lateral fluoro radiograph was used to plan our incision. The right side of the neck was sterilely prepped and draped. We opened with a 10 blade knife and controlled the bleeding with bipolar cautery. We dissected sharply to the platysma and cut this muscle in line with our incision. We continued our dissection medial to the sternocleidomastoid and lateral to the trachea and esophagus. We arrived to the prevertebral space and placed a marker at C4-C5. Then, we took a lateral fluoro radiograph to confirm the levels upon which we were operating. We then elevated the longus colli muscles off the anterior surface of C3, C4, C5, and C6, and placed the self-retaining retractors beneath them. Distraction pins were placed in C3 and C5 and we distracted across both of the intervening interspaces. We incised the interspaces with a 15 blade knife and we removed disk contents using curettes and rongeurs. The operative microscope was brought into the field. Under microscopic magnification using microsurgical techniques, we removed the remainder of the intervertebral disk. With micro curettes, we accessed the ventral epidural space and then Kerrison rongeurs were used to remove posterior osteophytes and posterior longitudinal ligament across the entire interspace at C3-C4 and C4-C5. We decompressed from one neural foramen all the way to the other and there was no further compression of the dura. We turned our attention to arthrodesis at these segments. We prepared the endplates for grafting and measured the height of the interspace with bone rasps. We measured C3-C4 to 8 mm and C4-C5 to 7 mm. The appropriately sized PEEK intervertebral grafts were brought into the field. Osteophytes removed during our decompression were cleaned of soft tissue attachments and then the morselized bone was added to demineralized bone matrix as our fusion substrate. The substrate was packed in the PEEK grafts and the PEEK grafts were advanced into the interspaces under radiographic guidance to the appropriate depth. We then removed our distraction pin from C3 and we placed it at C6. We removed our lateral retractors down to C5-C6. We distracted across the intervening interspace. We incised the interspace with a 15 blade knife and we removed disk contents using curettes and rongeurs. We continued under the operating microscope to access the ventral epidural space with micro curettes. Kerrison rongeurs were used to remove posterior osteophytes and posterior longitudinal ligament across the entire interspace. We then prepared our endplates for grafting with curettes. We measured the height of the interspace with our bone rasp to 7 mm. A 7 mm PEEK graft was brought into the field and it was loaded, like the others, with the demineralized bone matrix and morselized autograft, and advanced into the interspace under radiographic guidance to the appropriate depth. We then irrigated copiously with bacitracin irrigation and removed our distraction pins. A 51 mm anterior cervical plate was brought into the field. We drilled master pilot holes through the plate into the vertebral bodies from C3-C6 and we affixed the plate using 14 mm screws. Fixed angle screws were used at C6 and variable angle screws at C3, C4, and C5. We engaged the locking mechanism over each of the 8 screws. AP and lateral fluoro radiographs confirmed adequate position of our instrumentation. We closed the wound in anatomical layers and we applied a sterile dressing. This was a clean case with no contamination. Job ID: [id number]
[2019-04-04] MEDS: Sodium Chloride 0.9% 1,000 ML IV SCH ×2 (15:40→15:55)
[2019-04-04] MEDS: CEFAZOLIN 2 GM in Premix Bag 1 BAG IVPB SCH ×2 (15:55→21:41)
[2019-04-04] MEDS: Carvedilol 6.25 MG TAB PO SCH (21:40)
[2019-04-05] MEDS: Sodium Chloride 0.9% 1,000 ML IV SCH (05:32)
[2019-04-05] MEDS ORDERED: Levothyroxine Sodium 25 MCG TAB PO SCH (06:00)
[2019-04-05 07:22] VITALS: BP 96/58; TEMP 99
[2019-04-05] MEDS ORDERED: Amlodipine 5 MG TAB PO SCH (09:00)
[2019-04-05] MEDS: Carvedilol 6.25 MG TAB PO SCH (09:32)
--- NOTE | 2019-04-05 11:10 | PRG ---
DATE OF SERVICE: 04/05/2019 I saw Rochelle Suarez in her hospital room this morning. She is one day out from a 3-level ACDF for myelopathy. Her neck feels stretched. Her hands and arms feel better than they did before surgery. She is pleased with that. I removed the dressing and the incision is well-approximated, clean, and dry. She is wearing a collar and she slept in it last night. She needs to wear a collar for 2 months, but it is not required that she sleep in it or eat in it or shower in it. Followup arrangements will be made to our office and she will be contacted on Monday with the date and time of her appointment. We went over wound care and activity restrictions. Job ID: [id number]
--- NOTE | 2019-04-06 13:35 | EKG ---
Test Reason : PREOP Blood Pressure : / mmHG Vent. Rate : 066 BPM Atrial Rate : 066 BPM P-R Int : 178 ms QRS Dur : 098 ms QT Int : 426 ms P-R-T Axes : 076 088 056 degrees QTc Int : 446 ms Normal sinus rhythm Normal ECG No previous ECGs available Confirmed by DR. Mina BROOKS ([id number]) on 04/06/2019 1:35:30 PM Referred By: CHRISTI Confirmed By:DR. Mina BROOKS
== END 2019-04-05 11:12 | disposition home or self-care (01) | DRG 472 ==
LOC: SURG A 05:48 → EDSTATUS 09:47 → SURG B 12:29
PROVIDERS: ADMIT Neurological Surgery; ATTEND Neurological Surgery
PROC: 0RG20A0 Fusion of 2 or more Cervical Vertebral Joints with Interbody Fusion Device, Anterior Approach, Anterior Column, Open Approach (ICD-10-PCS; principal; 2019-04-04)
PROC: 0RB30ZZ Excision of Cervical Vertebral Disc, Open Approach (ICD-10-PCS; 2019-04-04)
DX: M48.02 Spinal stenosis, cervical region (principal); G99.2 Myelopathy in diseases classified elsewhere; G95.20 Unspecified cord compression; F41.9 Anxiety disorder, unspecified; E03.9 Hypothyroidism, unspecified; D64.9 Anemia, unspecified; I10 Essential (primary) hypertension; Z88.8 Allergy status to other drugs, medicaments and biological substances; Z87.891 Personal history of nicotine dependence; Z88.5 Allergy status to narcotic agent; Z98.51 Tubal ligation status
CPT/HCPCS: 36415; 76000; 85027; 85610; 85730; 93005; 93010; C1713; C1776; J0690; J2250; J2370; J2550; J3010; J3490

== ENCOUNTER 2019-06-04 12:37 | Outpatient (CLI) | payer MEDICARE, MEDICAID ==
--- NOTE | 2019-06-04 13:34 | RAD ---
EXAM: XR Cerv Sp Ap Lat STANDARD DATE: 06/04/2019 12:00 AM INDICATION: Neck pain; postop COMPARISON: Prior exam dated February 12, 2019 FINDING: Since the comparison examination there is been interval performance of an ACDF spanning C3- C6. Intervertebral body cages are seen at C3-4 through C5-6 . Prevertebral soft tissues are normal appearing. The instrumentation projects in expected position. Lung apices are clear. Lateral masses a re symmetric. IMPRESSION:ACDF of C3-C6. The instrumentation projects in expected position. Spinal alignment is with in normal limits. There is stable [id number] spondylosis of the cervical spine. No acute osseous abnormality is demonstrated.
== END 2019-06-04 12:38 | disposition home or self-care (01) ==
LOC: TBSIIMAG 12:37
PROVIDERS: ATTEND Neurological Surgery
DX: M54.2 Cervicalgia (principal); M47.812 Spondylosis without myelopathy or radiculopathy, cervical region; Z98.1 Arthrodesis status
CPT/HCPCS: 72040

== ENCOUNTER 2019-07-19 18:38 | Emergency (ER) | payer MEDICARE, MEDICAID ==
[2019-07-19 20:46] LABS: #Basophils 0.1 thou/uL (0.0-0.2); #Eosinphils 0.1 thou/uL (0.0-0.7); #Lymphocytes 2.6 thou/uL (1.20-3.40); #Monocytes 0.6 thou/uL (0.11-0.59); #Neutrophils 4.4 thou/uL (1.40-6.50); %Basophils 1.3 % (0.0-1.0); %Eosinophils 1.2 % (0.0-10.0); %Lymphocytes 33.2 % (21.0-51.0); %Neutrophils 56.3 % (42.0-75.0); Hemoglobin 14.3 g/dL (12.0-16.0); Mean Corpuscular HGB CONC 34.2 g/dL (32.0-36.0); Mean Corpuscular Hemoglobin 29.4 pg (27.0-31.0); Mean Corpuscular Volume 85.9 fL (78.0-98.0); Mean Platelet Volume 6.9 fL (7.4-10.4); Platelet Count 226 thou/uL (130-400); RBC Distribution Width 12.8 % (11.5-14.5); Red Blood Cell (RBC) Count 4.87 mill/uL (4.20-5.40); White Blood Cell (WBC) Count 7.8 thou/uL (4.8-10.8)
[2019-07-19 21:12] LABS: ALT (SGPT) 7 U/L (8-55); AST (SGOT) 13 U/L (5-34); Albumin 4.3 g/dL (3.4-4.8); Alkaline Phosphatase 82 U/L (40-150); Anion Gap 14 mmol/L (10-20); BUN (Urea Nitrogen) 6 mg/dL (9.8-20.1); Bilirubin, Total 1.2 mg/dL (0.2-1.2); Calc. Creatinine Clearance 0 mL/min (70-130); Calcium 9.9 mg/dL (7.8-10.44); Carbon Dioxide 25 mmol/L (23-31); Chloride 93 mmol/L (98-107); Estimated GFR-MDRD 77; Globulin 3.1 g/dL (2.4-3.5); Glucose 99 mg/dL (80-115); Potassium 3.7 mmol/L (3.5-5.1); Protein, Total 7.4 g/dL (6.0-8.3); Sodium 128 mmol/L (136-145)
[2019-07-19 22:01] LABS: Bilirubin Negative (Negative); Blood, Urine Negative (Negative); Clarity Clear (Clear); Glucose, Urine (Dipstick) Normal (Negative); Leukocyte Negative Leu/uL (Negative); Nitrite Negative (Negative); Protein, Urine (Dipstick) Negative (Neg-Trace); Urobilinogen Normal mg/dL (Less than 2)
--- NOTE | 2019-07-19 22:24 | CT ---
EXAM: CT brain without contrast HISTORY: Headache for 5 years and scalp tingling COMPARISON: 11/20/2018 TECHNIQUE: Multiple contiguous axial images were obtained and a CT of the brain without contrast. FINDINGS: The brain is normal in morphology and attenuation without focal lesions or confluent areas of infarction. There is no evidence of hydrocephalus, intracranial hemorrhage, or extra-axial fluid collection. The calvarium and overlying soft tissues are unremarkable. The visualized paranasal sinuses and masto id air cells are well aerated. IMPRESSION: No evidence of acute intracranial abnormality
== END 2019-07-19 22:50 | disposition home or self-care (01) ==
LOC: ERS 18:38
DX: R20.2 Paresthesia of skin (principal); I10 Essential (primary) hypertension; F17.210 Nicotine dependence, cigarettes, uncomplicated; Z79.899 Other long term (current) drug therapy
CPT/HCPCS: 36415; 70450; 80053; 81003; 85025